=== PATIENT | female | born 1935 | race Caucasian/White ===

== ENCOUNTER 2023-07-25 11:26 | Outpatient (CLI) | payer MEDICARE, BC | END 2023-07-25 11:27 | disposition home or self-care (01) | LOC: CSHWCC 11:26 | PROVIDERS: ATTEND Nurse Practitioner Family | DX: I83.023 Varicose veins of left lower extremity with ulcer of ankle (principal); L97.322 Non-pressure chronic ulcer of left ankle with fat layer exposed | CPT/HCPCS: 11042 ==

== ENCOUNTER 2023-08-08 10:17 | Outpatient (CLI) | payer MEDICARE, BC | END 2023-08-08 10:18 | disposition home or self-care (01) | LOC: CSHWCC 10:17 | PROVIDERS: ATTEND Nurse Practitioner Family | DX: L97.322 Non-pressure chronic ulcer of left ankle with fat layer exposed (principal); I83.023 Varicose veins of left lower extremity with ulcer of ankle | CPT/HCPCS: 97597 ==

== ENCOUNTER 2023-08-15 13:15 | Outpatient (CLI) | payer MEDICARE, BC | END 2023-08-15 13:16 | disposition home or self-care (01) | LOC: CSHWCC 13:15 | PROVIDERS: ATTEND Nurse Practitioner Family | DX: I83.023 Varicose veins of left lower extremity with ulcer of ankle (principal); L97.322 Non-pressure chronic ulcer of left ankle with fat layer exposed | CPT/HCPCS: 11042 ==

== ENCOUNTER 2023-08-22 11:23 | Outpatient (CLI) | payer MEDICARE, BC | END 2023-08-22 11:24 | disposition home or self-care (01) | LOC: CSHWCC 11:23 | PROVIDERS: ATTEND Preventive Medicine Undersea and Hyperbaric Medicine | DX: L97.322 Non-pressure chronic ulcer of left ankle with fat layer exposed (principal); I83.023 Varicose veins of left lower extremity with ulcer of ankle | CPT/HCPCS: 99213; G0463 ==

== ENCOUNTER 2023-08-29 11:33 | Outpatient (CLI) | payer MEDICARE, BC | END 2023-08-29 11:34 | disposition home or self-care (01) | LOC: CSHWCC 11:33 | PROVIDERS: ATTEND Nurse Practitioner Family | DX: I83.023 Varicose veins of left lower extremity with ulcer of ankle (principal); L97.322 Non-pressure chronic ulcer of left ankle with fat layer exposed | CPT/HCPCS: 11042 ==

== ENCOUNTER 2023-09-05 10:30 | Outpatient (CLI) | payer MEDICARE, BC | END 2023-09-05 10:31 | disposition home or self-care (01) | LOC: CSHWCC 10:30 | PROVIDERS: ATTEND Nurse Practitioner Family | DX: L97.322 Non-pressure chronic ulcer of left ankle with fat layer exposed (principal); I83.023 Varicose veins of left lower extremity with ulcer of ankle | CPT/HCPCS: 11042 ==

== ENCOUNTER 2023-09-12 10:11 | Outpatient (CLI) | payer MEDICARE, BC | END 2023-09-12 10:12 | disposition home or self-care (01) | LOC: CSHWCC 10:11 | PROVIDERS: ATTEND Nurse Practitioner Family | DX: I83.023 Varicose veins of left lower extremity with ulcer of ankle (principal); L97.322 Non-pressure chronic ulcer of left ankle with fat layer exposed | CPT/HCPCS: 11042; 87070; 87077; 87186; 87205; G0463; 99212 ==

== ENCOUNTER 2023-09-26 09:53 | Outpatient (CLI) | payer MEDICARE, BC | END 2023-09-26 09:54 | disposition home or self-care (01) | LOC: CSHWCC 09:53 | PROVIDERS: ATTEND Nurse Practitioner Family | DX: I83.023 Varicose veins of left lower extremity with ulcer of ankle (principal); L97.322 Non-pressure chronic ulcer of left ankle with fat layer exposed | CPT/HCPCS: 11042 ==

== ENCOUNTER 2023-10-24 10:35 | Outpatient (CLI) | payer MEDICARE, BC | END 2023-10-24 10:36 | disposition home or self-care (01) | LOC: CSHWCC 10:35 | PROVIDERS: ATTEND Nurse Practitioner Family | DX: I83.023 Varicose veins of left lower extremity with ulcer of ankle (principal); L97.322 Non-pressure chronic ulcer of left ankle with fat layer exposed | CPT/HCPCS: 97597 ==